=== PATIENT | male | born 1985 | race Caucasian/White ===

== ENCOUNTER 2017-02-15 12:17 | Emergency (ER) | payer BC ==
[~2017-02-15] VITALS: Ht 170.2 cm; Wt 90.3 kg
[2017-02-15 15:23] VITALS: BP 137/72
== END 2017-02-15 15:23 | disposition home or self-care (01) ==
LOC: ED 12:17
DX: S20.212A Contusion of left front wall of thorax, initial encounter (principal); S20.211A Contusion of right front wall of thorax, initial encounter; V49.9XXA Car occupant (driver) (passenger) injured in unspecified traffic accident, initial encounter; W22.10XA Striking against or struck by unspecified automobile airbag, initial encounter; Y93.89 Activity, other specified; Y99.8 Other external cause status; Y92.89 Other specified places as the place of occurrence of the external cause